=== PATIENT | male | born 1950 | race African-American/Black ===

== ENCOUNTER 2019-09-02 11:14 | Inpatient (IN) | payer OTHER ==
[2019-09-02] VITALS (29 sets, daily range): BP systolic 43–125; BP diastolic 15–88
[~2019-09-02] VITALS: Ht 188 cm; Wt 107.0 kg
[2019-09-02] MEDS ORDERED: EFFER-K 20 MEQ20 ME1 PO (12:30)
[2019-09-02] MEDS ORDERED: HYDROCHLOROTHIA25 M2 PO (12:30)
[2019-09-02] MEDS ORDERED: ATENOLOL 100MG100 MG PO (12:30)
[2019-09-02] MEDS ORDERED: ACYCLOVIR 400400 MG PO (12:30)
[2019-09-02] MEDS ORDERED: BACTRIM DS TAB1 EAC1 PO (12:31)
[2019-09-02] MEDS ORDERED: FLOMAX0.4 MG PO (12:31)
[2019-09-02] MEDS ORDERED: ASPIRIN325 PO (12:32)
[2019-09-02] MEDS ORDERED: KONSYL300 GM PO (12:32)
[2019-09-02 12:33] LABS: ABSOLUTE NEUTROPHILS 4.8 thou/uL (1.4-8.2); BASOPHILS 0.5 % (0.0-2.0); EOSINOPHILS 0.5 % (0.0-3.0); HEMATOCRIT 24.7 % (42.0-52.0); HEMOGLOBIN 8.4 gm/dL (14.0-18.0); LYMPHOCYTES 11.2 % (24.0-44.0); MCH 29.4 pg (26.0-34.0); MCV 86.5 fL (80.0-100.0); MONOCYTES 7.5 % (1.0-8.0); PLATELET COUNT 240 thou/uL (150-400); POLYS 80.3 % (36.0-66.0); RBC 2.85 mil/uL (4.50-6.00); RDW 14.8 % (10.5-14.5)
[2019-09-02] MEDS ORDERED: VITAMIN E400 UNIT PO (12:33)
[2019-09-02] MEDS ORDERED: VITAMIN C1000 MG PO (12:33)
[2019-09-02] MEDS ORDERED: VITAMIN D3250 MC1 PO (12:34)
[2019-09-02 12:43] LABS: ANION GAP 6 mmol/L (7-16); BUN 19 mg/dL (7-18); CALCIUM 8.9 mg/dL (8.5-10.1); CHLORIDE 102 mmol/L (98-107); CO2 27 mmol/L (21-32); CREATININE 2.1 mg/dL (0.7-1.3); GLUCOSE 157 mg/dL (74-106); POTASSIUM 4.4 mmol/L (3.5-5.1); SODIUM 135 mmol/L (136-145)
[2019-09-02 12:44] LABS: APTT 24.3 Seconds (24.5-32.8); INR 1.2
[2019-09-02 12:51] LABS: TROPONIN-I <0.06 ng/mL (<0.06)
[2019-09-02 13:10] LABS: ALBUMIN 3.7 g/dL (3.4-5.0); TOTAL PROTEIN 6.3 g/dL (6.4-8.2)
[2019-09-02 13:29] LABS: URINE BILIRUBIN NEGATIVE (Negative); URINE BLOOD 2+ (Negative); URINE CLARITY CLEAR; URINE COLOR YELLOW; URINE GLUCOSE-RANDOM* NEGATIVE (Negative); URINE KETONES NEGATIVE (Negative); URINE NITRITE-REFLEX NEGATIVE (Negative); URINE PROTEIN (DIPSTICK) NEGATIVE (Negative); URINE SPECIFIC GRAVITY 1.025 (1.005-1.035); URINE UROBILINOGEN 0.2 E.U./dl (0.2-1.0)
[2019-09-02 13:30] LABS: URINE LEUKOCYTES-REFLEX 1+ (Negative)
[2019-09-02 13:35] LABS: TSH 2.846 uIU/mL (0.358-3.740)
[2019-09-02 13:36] LABS: BACTERIA-REFLEX None Seen /HPF (None Seen); CASTS None Seen /LPF (None Seen); CRYSTALS None Seen /LPF (None Seen); SQUAMOUS None Seen /LPF (0-3); URINE RBC 3-10 Few /HPF (0-2); URINE WBC-REFLEX 6-15 Few /HPF (0-5)
[2019-09-02] MEDS ORDERED: TOPROL XL100 MG PO (16:30)
--- NOTE | 2019-09-02 16:51 | NUR ---
PT ADMITED FROM ER. ADMISSION HX AND ASSESSMENT COMPLETED. PT ALERT AND ORIENTED. VSS. DENIED HAVING PAIN OR DISCOMFORT. HAS TWO EPISODE OF MICHAEL RED STOOL SINCE HE CAME UP TO THE UNIT. DR. KAUFMAN CONSULTED. GI BLEED SCAN ORDERED. DR. HINSON AWARE. WILL CONTINUE TO MONITOR.
--- NOTE | 2019-09-02 18:15 | NUR ---
69 YO MALE RECEIVED TRANSFER FROM [facility] AFTER HAVING A SYNCOPAL EPISODE AFTER HAVING A LARGE BLOODY STOOL WITH CLOTS PER PATIENT. PATIENT ALERT AND ORIENTED, SKIN WARM AND DRY, PULSE IS WEAK AND THREADY. ATTACHED TO MONITOR SHOWING NSR WITH RATE IN THE 90. PLACED ON BEDPAN HE FEELS THE URGE TO HAVE A BM. IV THERAPY HERE TO INSERT PICC. NS INFUSING. SETTING UP UNIT OF BLOOD.
[2019-09-02 18:58] LABS: HEMATOCRIT 20.7 % (42.0-52.0)
--- NOTE | 2019-09-02 19:10 | NUR ---
CONSULTED TO PLACE A PICC FOR A PATIENT TX TO ICU POST RR/CODE CALLED TO [facility]. DR. HINES CONFIRMED PICC ORDER AND PATIENT VERBALLY STATED CONCENT. PICC IS URGENT AND A LEFT UPPER ARM BASILIC WAS WIDLEY PATENT. A #5F TRIPLE LUMEN POWER PICC WAS PLACED WITHOUT DIFFICULTY. LINE WAS TRIMMED AT 54CM AND ADVENACED WITHOUT DIFFICULTY. A STAT CHEST XRAY WAS ORDERED TO COMFIRM LINE
[2019-09-02 19:37] LABS: MCH 29.7 pg (26.0-34.0); MCV 87.3 fL (80.0-100.0); RBC 2.37 mil/uL (4.50-6.00); RDW 14.9 % (10.5-14.5); WBC 7.5 thou/uL (4.0-11.0)
--- NOTE | 2019-09-02 20:30 | NUR ---
ASSUMED CARE OF PT AT 1900. PT ALERT AND ORIENTED. PER DAY SHIFT RN PT HAD A FEBRILE REACTION TO SECOND UNIT OF BLOOD. PT STATED THAT HE ONLY FELT CHILLS BUT NO OTHER SYMPTOMS. PT HAD EPISODE OF DRY HEAVING WITHOUT VOMITING. ZOFRAN GIVEN PER MILITARY TECHNOLOGY MANAGER. GI MEHDI BRADY AT BEDSIDE AT 194. DR OLSEN AT BEDSIDE AT 1949, DECIDE NOT TO INTUBATE PT. PT TAKEN TO GI LAB AT 1952. BLOOD WAS RETURNED TO LAB PER BLOOD REACTION PROTOCOL.
[2019-09-03] VITALS (85 sets, daily range): BP systolic 87–146; BP diastolic 46–86
[2019-09-03 01:22] LABS: APTT 22.4 Seconds (24.5-32.8); D-DIMER 0.38 ug/mLFEU (0.19-0.50); INR 1.2; PROTIME 12.4 Seconds (9.3-11.4)
[2019-09-03 01:45] LABS: ALBUMIN 2.6 g/dL (3.4-5.0); SGOT 28 U/L (15-37); SGPT 19 U/L (30-65); TOTAL BILIRUBIN 0.3 mg/dL (0.2-1.0); TOTAL PROTEIN 4.9 g/dL (6.4-8.2)
[2019-09-03 01:52] LABS: DIRECT BILIRUBIN < 0.1 mg/dL (<0.1-0.2)
[2019-09-03 06:15] LABS: HEMOGLOBIN 6.7 gm/dL (14.0-18.0); RDW 14.8 % (10.5-14.5); WBC 8.3 thou/uL (4.0-11.0)
[2019-09-03 06:17] LABS: MCHC 34.6 g/dL (28.0-37.0); MCV 86.9 fL (80.0-100.0); RBC 2.21 mil/uL (4.50-6.00)
[2019-09-03 06:23] LABS: HEMATOCRIT 19.3 % (42.0-52.0)
--- NOTE | 2019-09-03 07:53 | NUR ---
ASSUMED CARE AT 0700. PATIENT HAD LARGE BRIGHT RED BLOODY STOOL WITH LARGE CLOTS. FELT FAINT AFTER STOOL. HOB LOWERED, BP DOWN 90/50. A/0 X4. SKIN WARM TYLENOL GIVEN AND TRANFUSION OF PRBC'S STARTED
[2019-09-03 08:28] LABS: CREATININE 1.7 mg/dL (0.7-1.3); MAGNESIUM 1.6 mg/dL (1.8-2.4); POTASSIUM 3.9 mmol/L (3.5-5.1)
[2019-09-03 08:37] LABS: CALCIUM 6.9 mg/dL (8.5-10.1)
--- NOTE | 2019-09-03 11:33 | EKG ---
[facility] [place] [address] ELECTROCARDIOGRAM REPORT Name: CARMEN MARTINEZ Room #: 250-P ADM IN M.R.#: [id number] Admission: 09/02/19 Attend Phys: Nino Yoder MD Discharge: Date of : 50 Report #: [id number] THIS REPORT FOR: cc: Aleksey Coyne MD, Michael D. MD Couchonnal, Luis F. 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
--- NOTE | 2019-09-03 11:33 | EKG ---
[facility] [place] [address] ELECTROCARDIOGRAM REPORT Name: CARMEN MARTINEZ Room #: 250-P ADM IN M.R.#: [id number] Admission: 09/02/19 Attend Phys: Nino Yoder MD Discharge: Date of : 50 Report #: [id number] THIS REPORT FOR: cc: Aleksey Coyne MD, Michael D. MD Couchonnal, Luis F. 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
--- NOTE | 2019-09-03 13:20 | NUR ---
PATIENT RECEIVED SECOND UNIT OF PRBC'S. TOLERATED WITHOUT INCIDENT. HAD 2 LARGE BLOODY STOOLS, FIRST MORE LIQUID AND SECOND HAD LIQUID BLOOD WITH CLOTS. DR HINSON AWARE AND ORDERS NOTED. ALSO NOTIFIED AT 1133 OF LOW MAG AND CALCIUM LEVEL. ORDERS NOTED, MAG INFUSING. AWAITING NUCLEAR MED TEST. VSS. WILL CONTINUE TO MONITOR.
--- NOTE | 2019-09-03 14:30 | NUR ---
TO NUCLEAR MED AND BACK AT 1340 TO [address] HINSON, DR KAUFMAN AND DR DIEGO NOTIFIED THAT PATIENT WAS BACK FOR NUCLEAR MED STUDY. ORDERS NOTED FROM DR KAUFMAN.
--- NOTE | 2019-09-03 19:00 | NUR ---
PATIENT SLOWLY PROGRESSING TOWARDS GOALS HE HAS HAD NO LARGE BLOODY STOOLS SINCE PRIOR TO NUCLEAR MED. MONITOR NSR, MAP GREATER THAN 65. RECEIVED 3 UNITS OF PRBC'S AND HBG PENDING. TAKING PREP FOR FLEX SIG PROCEDURE ON 09/03. URINE OUTPUT REMAINS 50 ML OR GREATER /HR. O2 SAT IN THE UPPER 90'S ON RA. REMAINS A/O X4. MAG AND CALCIUM REPLACEMENTS GIVEN.
[2019-09-03 19:25] LABS: HEMATOCRIT 24.8 % (42.0-52.0); HEMOGLOBIN 8.4 gm/dL (14.0-18.0)
--- NOTE | 2019-09-03 22:03 | NUR ---
ASSUMED CARE OF PT AT 1900. PT ALERT AND ORIENTED X4. AT 2014 PT C/O FEELING NAUSEATED PT HAD EPISODE OF EMESIS, WITH 200 CC OUT OF EMESIS. ZOFRAN GIVEN WITH IMPROVEMENT IN SYMPTOMS. AT 2119 PT HAD 2 STOOLS. FIRST STOOL APPEARED TO BE A MODERATE SIZE CLOTH. SECOND STOOL WAS LARGE MAROON COLORED LIQUID STOOL. PT THEN C/O FEELING LIGHT HEADED AT 2129 PT NOTED TO BE TACHYCARDIC AND HYPOTENIVE, HR 120-130s AND BP 87/46 (55). PT WAS CLEANED AND ALLOWED TO REST. BP IMPROVED TO 106/55 (71) AT 2139. Chandni LARRY NP CONTACTED AT 2154 AND UPDATED ON PATIENT CONDITION AND PLAN OF CARE. ORDER FOR REPEAT H&H PLACED BY TRAFFIC ADMINISTRATOR. WILL CONTINUE TO MONITOR PT.
[2019-09-04] VITALS (49 sets, daily range): BP systolic 85–141; BP diastolic 62–85
[2019-09-04 05:53] LABS: HEMATOCRIT 21.5 % (42.0-52.0); HEMOGLOBIN 7.3 gm/dL (14.0-18.0); MCH 29.5 pg (26.0-34.0); MCV 86.8 fL (80.0-100.0); RBC 2.48 mil/uL (4.50-6.00); RDW 14.6 % (10.5-14.5); WBC 11.3 thou/uL (4.0-11.0)
[2019-09-04 06:22] LABS: CALCIUM 6.6 mg/dL (8.5-10.1); CREATININE 1.5 mg/dL (0.7-1.3); MAGNESIUM 1.9 mg/dL (1.8-2.4); POTASSIUM 3.9 mmol/L (3.5-5.1)
--- NOTE | 2019-09-04 07:58 | NUR ---
REC CARE OF PT AT SHIFT CHANGE, REPORTS OF LOW GRADE TEMP HIGHEST 99.8, ROOM COOL. NO C/O OF PAIN AT THIS TIME. PHYSICIAN WORKING W/PT AT THIS TIME. CALLED GI LAB, HAVE SIX OUTPATIENTS CURRENTLY, ORDERS OF MED PASS W/SIPS OF WATER. PT DENIES HAVING ANY NAUSEA, NOTED ZOFRAN GIVEN AT 0200 HOUR. PT IS A&0X4, AMB INDEPENDENTLY NORMALLY, REPORTS OF SYNCOPAL EPISODE/CODE W/PULSE RECENT. WILL GET UP TO EDGE OF BED, BUT NOT UP. PT HAS PRIOR MEDICAL EXPERIENCE IN HOSPITAL. REPORT OF TACHYCARDIA UP TO 140S W/ANY ACTIVITY. SEE SEPARATE INTERVENTIONS FOR ASSESSMENT
--- NOTE | 2019-09-04 13:33 | NUR ---
BLOOD DOCUMENTATION: PT LEFT FOR PROCEDURES APPROX 1300 WITH BLOOD TRANSFUSION, VIA HIS OWN BED. COMES STRAIGHT HERE, NOT PACU, WILL MONITOR HEN
[2019-09-04 15:30] LABS: HEMOGLOBIN 7.2 gm/dL (14.0-18.0)
--- NOTE | 2019-09-04 16:22 | NUR ---
DR. LUH KAUFMAN PUT IN A CONSULT FOR DR. RYAN MCDOWELL, NUMBER DEFUNCT, INTERNET SHOWS UROLOGY. TEXTED DR. DIXON AND HE STATES THEY ARE IN SAME PRACTICE SO HE'S REC THE MESSAGE FOR POSSIBLE EMBOLIZATION, ETC. SEE ORDERS
--- NOTE | 2019-09-04 16:31 | NUR ---
INITIAL ASSESSMENT: SW reviewed chart and spoke with nursing and attending physician. Pt was admitted from home due to abdominal pain/GI bleed. Pt in ICU. Pt had EGD/colonoscopy earlier today. IR consulted. Possible arteriogram later today if indicated. Per chart, pt lives at home with his . Pt back from procedure and in his room resting. SW will follow up with pt/family tomorrow. SW is following to assist as needed with discharge planning.
--- NOTE | 2019-09-04 19:10 | NUR ---
BLOOD TRANSFUSION NOTES: PT LEFT DURING TRANSFUSION, NURSES REPORTED THEY ENTERED LAST VITAL SIGNS WHEN BLOOD WAS DONE. REPORTED OFF TO NIGHT RN ANOTHER UNIT NEEDED AND WROTE EXTENSIVE NOTES IN 'PROCEDURES' OF TWO PHYSICIAN PHONE NUMBERS AND REASONS TO TEXT/CALL TONIGHT.
[2019-09-05] VITALS (27 sets, daily range): BP systolic 111–157; BP diastolic 63–83
[2019-09-05 01:22] LABS: HEMOGLOBIN 7.8 gm/dL (14.0-18.0)
[2019-09-05 04:59] LABS: HEMATOCRIT 21.8 % (42.0-52.0); HEMOGLOBIN 7.4 gm/dL (14.0-18.0); MCH 30.4 pg (26.0-34.0); MCHC 33.7 g/dL (28.0-37.0); MCV 90.1 fL (80.0-100.0); RBC 2.42 mil/uL (4.50-6.00); RDW 14.5 % (10.5-14.5); WBC 13.1 thou/uL (4.0-11.0)
[2019-09-05 05:03] LABS: CALCIUM 6.6 mg/dL (8.5-10.1); CREATININE 1.6 mg/dL (0.7-1.3); MAGNESIUM 1.9 mg/dL (1.8-2.4); POTASSIUM 3.9 mmol/L (3.5-5.1)
--- NOTE | 2019-09-05 05:06 | NUR ---
CARE ASSUMED A 1900. PT LAERT AND ORIENTED. DENIES CHEST PAIN. PT TACHY ON THE MONITOR, REPORTS INTERMITTENT CHEST PALPITATION BUT DENIES ANYTHING SEVERE. TRANSFUSED ONE UNITOF PRBC. PRETRANSFUSION TEMP 99.7. POST TRANSFUSION PT TEMP WAS 100.0. NO TRANSFUSION REACTION NOTED. POST TRANSFUSION HGB 7.8, THIS MORNING HGB 7.4. RESULT NOTIFIED TO DAGO MART. ORDERS TO RECHECK H&H AT 1130, AND ORDER 2 UNITS OF BLOOD TO BE AVAILABLE NOW. PT CURRENTLY COMFORTABLE. NO DIZZINESS OR SOB REPORTED. 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 WILL CONTINUE TO MONITOR.
--- NOTE | 2019-09-05 07:10 | HC ---
[facility] [place] [address] CONSULTATION Name: CARMEN MARTINEZ Room #: 250-P ADM IN M.R.#: [id number] Admission: 09/02/19 Attend Phys: Nino Yoder MD Discharge: Date of : 50 Report #: [id number] THIS REPORT FOR: cc: Aleksey Coyne MD, Michael D. MD McKittrick, Richard James MD ~ CC: Kalyan Solo MD, Dr. Nino Easton MD REASON FOR CONSULTATION: Possible transfusion reaction and anemia. 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 He had a prostate biopsy about 9-10 days ago, was told he may have some bleeding, which he did. Then I guess it was worse on, I believe, Wednesday or Wednesday. He came to the hospital and was admitted. He has had blood per rectum. He has had a bleeding scan that confirmed that. He had, if I understand, a colonoscopy or sigmoidoscopy. They did not see any active bleeding, through did see a clot. He had another type of bleeding scan that showed possible blood near the hepatic flexure. He is scheduled for a scan later today. His hemoglobin on admission was 8.4. He then had several transfusions, he thinks he has had a total of 7, on about the second or third if I recall in the chart, he had a reaction where he had a low-grade fever. He may be dropped his pressure a little bit, but I think the lowest was around 108 and felt a little bit woozy. He has not had any hypoxia or breathing difficulties. The patient is currently interviewed in the ICU. Hemoglobin got down to low as 6.7, is currently 7.3 on the morning of 09/04/2019 at 5:35. During the same time, his coags have been normal including his INR and aPTT. His platelets have been in normal range. His total bilirubin was 0.3, LDH 134. Haptoglobin was normal range. Creatinine which originally was around 2.1, I believe is down to 1.7. PAST MEDICAL HISTORY: Notable for history of elevated PSA, hypertension, hyperlipidemia, slightly elevated hemoglobin A1c. SOCIAL HISTORY: Stopped smoking many years ago, maybe 3 or 4 alcoholic beverages per year. No street drugs. 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 FAMILY HISTORY: Mother and father had heart disease. He has multiple siblings, some of them with heart disease. One of them, I think, the brother may have had adrenal cancer. Has one daughter, who he describes is alive and well. [address] [address] CONSULTATION Name: CARMEN MARTINEZ Room #: 250-P ADM IN M.R.#: [id number] Admission: 09/02/19 Attend Phys: Nino Yoder MD Discharge: Date of : 50 Report #: [id number] PHYSICAL EXAMINATION: GENERAL: The patient appears his stated age. VITAL SIGNS: Height is 6 feet 2, 188 cm. Weight is 238.1 pounds or 108 kilos. Recent blood pressure is 133/77, pulse of 88, respirations 10, O2 sat 99%. Recent low-grade temperature of 99.7. MOOD: He is alert, pleasant, and very conversant. NEUROLOGIC: Speech and thought pattern are normal. He is moving arms and legs in a normal fashion. SKIN: Has no evidence of ecchymosis, except where some of his blood has been drawn in his antecubital fossa. HEENT: Oropharynx without petechiae, ulcers or redness or lesions. LUNGS: Clear to auscultation, symmetric, unlabored. No rhonchi, rales or wheezes. HEART: Appears regular rate. LYMPHATICS: No enlarged lymph nodes in the supraclavicular, cervical, axillary or inguinal region. ABDOMEN: Without masses, no hepatosplenomegaly. EXTREMITIES: Without clubbing, cyanosis or edema. MEDICATIONS: At this time include pantoprazole 40 mg IV daily, tamsulosin 0.4 daily, atenolol 100 mg daily, acyclovir 400 mg daily, Zofran p.r.n., Tylenol p.r.n. He thinks he may have been on an epinephrine and vasopressin drip, of those may just been available. I do not think he is currently on those. MiraLax 17 grams daily p.r.n. ASSESSMENT AND PLAN: 1. Reaction during transfusion, was probably a mild febrile reaction, but may have had some mild hypotension. Does not appear to have autoimmune basis. Note that bilirubin, haptoglobin and LDH appear normal. The patient appears to be stable. Continue monitoring hemoglobin serially and also kidney function and liver function tests. 2. Gastrointestinal bleed. Defer to GI and surgeons. Radiology investigation later today of hepatic flexure. 3. Prostate abnormalities. Pathology pending. 4. Hypertension in the past. Currently, holding hypertension medications given mild hypotension. Pressure at this time stable. 5. The patient reports lipid abnormalities. Continue monitoring. 6. Recent biopsy, on Bactrim. Continue per plans. 7. Benign prostatic hypertrophy, on Flomax. 8. Viral suppression. Reports being on Zovirax. [facility] [address] [place] [address] CONSULTATION Name: MICHELLECARMEN Room #: 250-P ADM IN M.R.#: [id number] Admission: 09/02/19 Attend Phys: Nino Yoder MD Discharge: Date of : 50 Report #: [id number] We will follow with you. <ELECTRONICALLY SIGNED> By: Jose Hamlin MD 09/05/19 0710 0815 1052 Jose Hamlin MD /nt
[2019-09-05 12:03] LABS: HEMATOCRIT 17.4 % (42.0-52.0)
[2019-09-05 12:28] LABS: HEMOGLOBIN 6.8 gm/dL (14.0-18.0)
[2019-09-05 12:34] LABS: HEMATOCRIT 19.9 % (42.0-52.0)
--- NOTE | 2019-09-05 15:40 | NUR ---
SW reviewed chart and spoke with attending physician. Pt with additional blood transfusions overnight. Pt to have arteriogram later today in IR. SW will follow up with pt at a later time. SW is following to assist as needed with discharge planning.
--- NOTE | 2019-09-05 17:56 | NUR ---
HEMODYNAMICALLY STABLE. H&H DRAWN AT 1130, CRITICAL AT 6.0 AND 17. REDRAWN FOR CLARIFICATION AND CAME BACK 6.8 AND 19. TO MUSEUM GUIDE FOR MESENTERIC ANGIOGRAM. RECTAL ARTERY WITH 4 AREAS OF BLEEDING AND COILS PLACED. R GROIN SITE WITH MYNX CLOSURE.
[2019-09-06] VITALS (43 sets, daily range): BP systolic 118–166; BP diastolic 56–82
[2019-09-06 04:37] LABS: MCV 91.9 fL (80.0-100.0); RBC 1.94 mil/uL (4.50-6.00); RDW 14.8 % (10.5-14.5)
[2019-09-06 04:38] LABS: MCH 31.3 pg (26.0-34.0); WBC 8.4 thou/uL (4.0-11.0)
[2019-09-06 04:47] LABS: CREATININE 1.2 mg/dL (0.7-1.3); POTASSIUM 3.4 mmol/L (3.5-5.1)
[2019-09-06 04:49] LABS: HEMATOCRIT 17.9 % (42.0-52.0); HEMOGLOBIN 6.1 gm/dL (14.0-18.0)
--- NOTE | 2019-09-06 05:39 | NUR ---
PT ALERT AND ORIENTED. NO BM MOVEMENTS OVERNIGHT ON ANY SIGN OF BLEEDING. BP REMAINED STABLE OVERNIGHT. HR CONTROLLED WITH NO ACTIVITIES BUT TACHY WITH ACTIVITIES. DENIES CHEST PAIN OR ANY PALPITATIONS. PT REPORTS NOT PASSING GAS BUT BOWEL SOUNDS ARE ACTIVE. MONITOR ABDOMINAL DISCOMFORT REPORTED OVERNIGHT WELL. THIS MORNING H&H WAS 6.1 AND 17.9 RESPECTIVELY. SENIOR BUSINESS ARCHITECT FIOR NOTIFIED. ORDERS TO TRANSFUSE 1 UNIT OF PRBC GIVEN. LAB NOTIFIED FOR TYPE AND SCREEN. PT ASYMPTOMATIC CURRENTLY RESTING COMFORTABLY IN BED. NO FURTHER CONCERNS AT THIS TIME. WILL CONTINUE TO FOLLOW POC.
--- NOTE | 2019-09-06 08:10 | P ---
[facility] [place] [address] PROCEDURE REPORT Name: CARMEN MARTINEZ Room #: 250-P ADM IN M.R.#: [id number] Admission: 09/02/19 Attend Phys: Nino Yoder MD Discharge: Date of : 50 Report #: [id number] THIS REPORT FOR: cc: Aleksey Coyne MD, Michael D. MD Young, Jeffrey L. MD ~ CC: Garth oCyne DATE OF SERVICE: 09/02/2019 PROCEDURE PERFORMED: Flexible sigmoidoscopy. ANESTHESIA USED: The patient was given propofol via the anesthesiologist. INDICATIONS FOR THE PROCEDURE: Lower GI bleeding. DESCRIPTION OF PROCEDURE: Informed consent was obtained. The patient was put in the left lateral decubitus position and given the IV sedation as discussed above. The colonoscope was advanced through the anus into the rectum, sigmoid colon, descending colon and distal transverse colon. There was a large adherent blood clot noted in the rectum. There was no active bleeding noted in the rectum. There were multiple diverticula noted in the sigmoid and distal descending colon. There was a lot of blood in the lumen, but no active bleeding identified. The colonoscope was withdrawn. The patient tolerated the procedure well and was recovered in stable condition. IMPRESSION: Suspected diverticular bleed. Less likely bleeding from the recent prostate biopsy. RECOMMENDATIONS: 1. Observe in ICU. 2. Transfuse packed red blood cells as necessary. 3. Consider mesenteric arteriogram if the patient continues to have GI bleeding. <ELECTRONICALLY SIGNED> By: Patricio Cadena MD 09/06/19 0810 2114 0724 Robert Bond MD /nt
--- NOTE | 2019-09-06 08:10 | P ---
[facility] [place] [address] PROCEDURE REPORT Name: CARMEN MARTINEZ Room #: 250-P ADM IN M.R.#: [id number] Admission: 09/02/19 Attend Phys: Nino Yoder MD Discharge: Date of : 50 Report #: [id number] THIS REPORT FOR: cc: Aleksey Coyne MD, Michael D. MD Young, Jeffrey L. MD ~ CC: Garth Coyne DATE OF SERVICE: 09/02/2019 GASTROENTEROLOGY PROCEDURE NOTE SURGEON: Robert Bond M.D. PROCEDURE: Upper GI endoscopy. PREOPERATIVE DIAGNOSIS: Gastrointestinal bleeding. POSTOPERATIVE DIAGNOSIS: Normal upper endoscopy. DESCRIPTION OF PROCEDURE: Informed consent was obtained. The patient was brought to the GI lab in a fasting state. The patient was put in the left lateral decubitus position and given the IV sedation as discussed above. The endoscope was passed through the oropharynx, down into the esophagus, stomach and duodenum. The esophagus, stomach and duodenum appeared normal. The endoscope was withdrawn. The patient tolerated the procedure well and was recovered in stable condition. IMPRESSION: Normal upper endoscopy. RECOMMENDATIONS: Proceed with flexible sigmoidoscopy to further evaluate for lower GI bleeding. <ELECTRONICALLY SIGNED> By: Patricio Cadena MD 09/06/19 0810 2111 0659 Robert Bond MD /any
--- NOTE | 2019-09-06 08:10 | HC ---
[facility] [place] [address] CONSULTATION Name: CARMEN MARTINEZ Room #: 250-P ADM IN M.R.#: [id number] Admission: 09/02/19 Attend Phys: Nino Yoder MD Discharge: Date of : 50 Report #: [id number] THIS REPORT FOR: cc: Aleksey Coyne MD, Michael D. MD Young, Jeffrey L. MD ~ CC: Garth Coyne DATE OF SERVICE: 09/02/2019 GASTROENTEROLOGY CONSULTATION REASON FOR CONSULTATION: GI bleeding and blood loss anemia. HISTORY OF PRESENT ILLNESS: The patient is a 69-year-old male. He had a prostate biopsy done 9 days ago. He had a small amount of bright red blood per rectum earlier this week. He called his urologist. His urologist told him to stop the aspirin. Then, early this morning, the patient started having multiple bloody bowel movements. He got lightheaded at home. He came to the Emergency Room. He was found to be anemic. He was sent down to nuclear medicine lab for GI bleeding scan. He had a syncopal episode in the nuclear medicine GI bleeding scan area. His hemoglobin dropped further. He was given another transfusion of packed red blood cells. He had a fever and they thought he was having a reaction to the blood transfusion. The blood transfusion was stopped. PAST MEDICAL HISTORY: Includes hypertension. He had the recent prostate biopsy as discussed above. SOCIAL HISTORY: Reveals that he is . 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 Does not abuse alcohol. FAMILY HISTORY: Unremarkable. MEDICINES: As per entered in the electronic medical record. REVIEW OF SYSTEMS: Reveals that he has not lost weight. Denies chest pain, heart murmurs, palpitations. Denies shortness of breath, cough, wheezing. Denies dysuria, hematuria, urinary frequency, urgency. No seizures, dizziness, nervousness, anxiety or depression. PHYSICAL EXAMINATION: GENERAL: Reveals a well-developed, well-nourished male in no acute distress. VITAL SIGNS: Stable and recorded on the nursing sheet. HEENT: Reveals anicteric sclerae. Normal oropharynx. [facility] [address] [place] [address] CONSULTATION Name: CARMEN MARTINEZ Room #: 250-P ADM IN M.R.#: [id number] Admission: 09/02/19 Attend Phys: Nino Yoder MD Discharge: Date of : 50 Report #: [id number] NECK: Supple without lymphadenopathy. CARDIOVASCULAR: Regular rate and rhythm. LUNGS: Clear to auscultation. ABDOMEN: Soft, nontender, bowel sounds present. No masses, no hepatosplenomegaly. EXTREMITIES: Reveal no clubbing, cyanosis or edema. NEUROLOGIC: He is alert and oriented x 3 without any gross motor or sensory deficits. LABORATORY DATA: Reviewed and on electronic medical record. IMPRESSION: Gastrointestinal bleeding and blood loss anemia. Suspect lower gastrointestinal blood loss. Nuclear medicine gastrointestinal bleeding scan suggested rectal or distal sigmoid gastrointestinal bleeding. RECOMMENDATIONS: Proceed with EGD and flexible sigmoidoscopy tonight to further evaluate. Further recommendations depending upon results of procedures. The patient will continue to receive transfusions of packed red blood cells. I discussed the situation with the surgeon who is present during my evaluation as well. If the patient continues to bleed, consider mesenteric arteriogram. <ELECTRONICALLY SIGNED> By: Patricio Cadena MD 09/06/19 0810 2118 0725 Robert Bond MD /nt
[2019-09-06 14:25] LABS: HEMATOCRIT 20.8 % (42.0-52.0); HEMOGLOBIN 7.1 gm/dL (14.0-18.0)
--- NOTE | 2019-09-06 14:46 | NUR ---
H&H THIS AM WAS 6.1/17.9. 1 UNIT OF PRBC'S TRANSFUSED WITHOUT REACTION. REPEAT H&H WAS 7.1/21.2. NO ACTIVE BLEEDING NOTED. WILL CHECK H&H Q6H X3.. ADVANCED TO REGULAR DIET. NO NAUSEA OR VOMITING.
--- NOTE | 2019-09-06 15:32 | NUR ---
SW reviewed chart and spoke with nursing and attending physician. Pt remains in ICU. Pt received additional blood transfusion. SW spoke with pt via phone. Introduced role of SW. Pt is alert/orientated x 4. Pt reports he lives at home with his and dtr. Prior to admission, pt was independent with ADLs. No use of DME. No hx of services or post-acute placement. Pt's PCP is Dr. Aleksey Coyne. Plan is for pt to discharge home when medically stable. SW is following to assist as needed with discharge planning.
--- NOTE | 2019-09-06 18:08 | PATH ---
[facility] [address] [place] [address] PATHOLOGY RPT PROCEDURE Name: KANE FLORES Room #: 250-P ADM IN M.R.#: [id number] Admission: 09/02/19 Date of : 50 Discharge: Report #: [id number] Path Case #: [id number] [facility] Accession Number: [id number] . 01 Material submitted: . colon - POLYP AT ASCENDING COLON. Modifiers: ascending . 01 Clinical history: . GI bleed . 02 Diagnosis: Large bowel "polyp at ascending colon", endoscopic biopsy: - Tubular adenoma; negative for high grade dysplasia and malignancy. (MLK/db; 09/06/2019) LBQ 09/06/2019 1445 Local . 02 Electronically signed: . Asia Talavera MD, Pathologist NPI- [id number] . 01 Gross description: . The specimen is received in formalin, labeled "Kane Flores, polyp at ascending colon" and consists of a fragment of pink-deng tissue measuring 0.2 x 0.2 x 0.1 cm which is entirely submitted in A1. (SDY; 09/05/2019) SYU/SYU 09/05/2019 1334 Local . 02 Pathologist provided ICD-10: D12.2 . 02 CPT . 009580 Specimen Comment: A courtesy copy of this report has been sent to [phone], [phone] Specimen Comment: [phone], Specimen Comment: Report sent to ,DR NOYOLA / DR HINSON Performed at: 01 [facility] [address] [id number] MD Stuart Moore MD Phone: [phone] Performed at: 02 [facility] [address] [id number] MD Dwight Morales MD Phone: [phone]
[2019-09-06 19:43] LABS: HEMATOCRIT 18.6 % (42.0-52.0)
[2019-09-06 19:44] LABS: HEMOGLOBIN 6.4 gm/dL (14.0-18.0)
[2019-09-07] VITALS (25 sets, daily range): BP systolic 102–164; BP diastolic 57–75
[2019-09-07 02:09] LABS: HEMATOCRIT 20.1 % (42.0-52.0)
--- NOTE | 2019-09-07 04:12 | NUR ---
PATIENT IS PROGRESSING SLOWLY IN HIS CARE PLAN. VITAL SIGNS STABLE WITH PATIENT HAVING NO COMPLAINTS OF PAIN OR NAUSEA. FULLY ORIENTED, PATIENT IS ABLE TO CALL APPROPRIATELY FOR NEEDS AND PARTICIPATE FULLY IN CARE. CRITICAL LOW HEMOGLOBIN AND HEMATOCRIT EARLY IN SHIFT WITH PATIENT TRANSFUSED PER PROVIDERS ORDERS WITHOUT INCIDENT. UP WITH ASSISTANCE INCIDENT FREE. CONTINUE PLAN OF CARE.
[2019-09-07 08:17] LABS: HEMATOCRIT 21.9 % (42.0-52.0); HEMOGLOBIN 7.6 gm/dL (14.0-18.0)
--- NOTE | 2019-09-07 11:55 | NUR ---
cm consult ? no home o2. cm spoke with bedside nurse, he not needed any o2 during his stay. discussed during los possible out of icu and possible dc home tomorrow. will cont following as needed for dc needs.
--- NOTE | 2019-09-07 12:00 | NUR ---
PATIENT HAS HAD A TOTAL OF TWO LOOSE/UNFORMED STOOLS; RED/BROWN IN COLOR.
[2019-09-07 13:58] LABS: HEMATOCRIT 21.6 % (42.0-52.0); HEMOGLOBIN 7.5 gm/dL (14.0-18.0)
--- NOTE | 2019-09-07 14:35 | NUR ---
PATIENT AGREEABLE WITH REMOVAL OF URINARY CATHETER AT THIS TIME. REMOVED TEJADA CATHETER PER PROTOCOL. URINAL PLACED AT BEDSIDE.
--- NOTE | 2019-09-07 17:31 | NUR ---
PATIENT C/O HEADACHE. PAIN 3 OUT OF 10. PRN TYLENOL GIVEN FOR PAIN PER PATIENT REQUEST. PATIENT DENIES ANY OTHER NEEDS AT THIS TIME.
--- NOTE | 2019-09-07 18:21 | NUR ---
VSS. PATIENT A/O X 4. PATIENT UP TO CHAIR THIS SHIFT. PATIENT HAD TWO LOOSE STOOLS/RED-BROWN. HGB STABLE AT 7.6 AND 7.5. LABS ORDERED FOR REDRAW TOMORROW MORNING. PICC LUMENS FLUSH/ASPIRATE APPROPRIATELY. SALINE LOCKED AT THIS TIME. TEJADA CATHETER REMOVED AT 1445. URINAL PLACED AT BEDSIDE. PATIENT HAS NOT VOIDED AT THIS TIME. PATIENT HAD A HEADACHE THIS EVENING; TREATED WITH PRN TYLENOL; DENIES PAIN AT THIS TIME. PATIENT SR/ST/BBB ON MONITOR. PULSE 80s-110s. REMAINS ON ROOM AIR. SBA TO USE BSC. ORDER TO DOWNGRADE AND TRANSFER TO CCU RECEIVED. AWAITING BED.
--- NOTE | 2019-09-07 18:30 | NUR ---
PATIENT VOIDED 150 ML OF CLEAR YELLOW URINE IN URINAL. PATIENT STATED HE DID NOT HAVE PROBLEMS VOIDING AT THIS TIME.
[2019-09-08] VITALS (61 sets, daily range): BP systolic 84–139; BP diastolic 42–86
[2019-09-08 02:54] LABS: HEMOGLOBIN 6.6 gm/dL (14.0-18.0); WBC 5.8 thou/uL (4.0-11.0)
[2019-09-08 02:55] LABS: MCH 31.1 pg (26.0-34.0); MCHC 34.4 g/dL (28.0-37.0); MCV 90.4 fL (80.0-100.0); RBC 2.12 mil/uL (4.50-6.00); RDW 14.3 % (10.5-14.5)
[2019-09-08 02:57] LABS: HEMATOCRIT 19.1 % (42.0-52.0)
--- NOTE | 2019-09-08 03:58 | NUR ---
0130: Pt up to have BM, from 4882-2910 pt had 3 large, bright red blood w/ clots stools. HR up to 140s, SBP down into 90s. O2 applied at 2L for comfort w/ good results. Pt pale and shivering, emotional support provided as patient discouraged with set back. Dr. Cadena notified, instructed RN to contact IR. Dr. Zheng phoned and orders for transfusion and CTA mesenteric artery obtained. From 6750-3515 pt has had approximately 6 more large stools filled with clots. Tolerating blood transfusion well at this time. See frequent vital signs and reassessments for further details. Discussed with pt the need to update his . He requested that we wait until morning when we are able to have more answers and possible treatment will have been done. Dr. Zheng stated he would be on his way in to see patient.
--- NOTE | 2019-09-08 07:10 | NUR ---
Pt continued to have large amounts of bleeding with tachycardia and hypotension. Loreto Kenyon and Dr. Zheng aware of decline in status. Around 04:30 pt began making gurgling noise, eyes rolled back into head and he appeared to be seizing/posturing. Code Blue called, pt never lost pulse and code was canceled. Pt to I.R. at 0500. Last 2 units of blood (4 given total) completed in I.R. Levophed titriated down to 6 mcg/min with SBP in 130s prior to this nurse reporting to I.R. nurse. At that time pt did not appear to be having anymore rectal bleeding and was stable.
--- NOTE | 2019-09-08 07:50 | NUR ---
RN ASSUMED CARE AT 0700, PATIENT IN IR AT THAT TIME. PATIENT RETURNED BACK TO UNIT AT 0740. NIGHT NURSE ATTEMPTING TO CALL , NO ANSWER.
[2019-09-08 08:32] LABS: HEMATOCRIT 27.6 % (42.0-52.0)
[2019-09-08 08:38] LABS: HEMOGLOBIN 9.4 gm/dL (14.0-18.0)
[2019-09-08 15:49] LABS: HEMATOCRIT 27.2 % (42.0-52.0); HEMOGLOBIN 9.5 gm/dL (14.0-18.0)
[2019-09-08 16:20] LABS: CALCIUM 7.3 mg/dL (8.5-10.1); CREATININE 1.3 mg/dL (0.7-1.3); MAGNESIUM 1.7 mg/dL (1.8-2.4); PHOSPHORUS 3.5 mg/dL (2.5-4.9); POTASSIUM 3.4 mmol/L (3.5-5.1)
--- NOTE | 2019-09-08 16:23 | NUR ---
SW reviewed chart and spoke with nursing and attending physician. Pt went to IR earlier today for embolization. Pt had additional blood transfusions. Pt remains in ICU level of care. No weekend discharge anticipated. JYOTI is following to assist as needed with discharge planning.
[2019-09-09] VITALS (25 sets, daily range): BP systolic 107–145; BP diastolic 68–93
[2019-09-09 06:14] LABS: ABSOLUTE NEUTROPHILS 4.1 thou/uL (1.4-8.2); BASOPHILS 0.3 % (0.0-2.0); EOSINOPHILS 3.6 % (0.0-3.0); HEMATOCRIT 24.2 % (42.0-52.0); HEMOGLOBIN 8.3 gm/dL (14.0-18.0); LYMPHOCYTES 10.4 % (24.0-44.0); MCH 30.5 pg (26.0-34.0); MCHC 34.3 g/dL (28.0-37.0); MCV 88.8 fL (80.0-100.0); MONOCYTES 11.9 % (1.0-8.0); PLATELET COUNT 136 thou/uL (150-400); POLYS 73.8 % (36.0-66.0); RBC 2.72 mil/uL (4.50-6.00); RDW 14.4 % (10.5-14.5); WBC 5.6 thou/uL (4.0-11.0)
[2019-09-09 06:32] LABS: INR 1.1; PROTIME 11.5 Seconds (9.3-11.4)
[2019-09-09 06:49] LABS: CALCIUM 6.8 mg/dL (8.5-10.1); CREATININE 1.2 mg/dL (0.7-1.3); MAGNESIUM 2.1 mg/dL (1.8-2.4); POTASSIUM 3.7 mmol/L (3.5-5.1); TOTAL BILIRUBIN 0.7 mg/dL (0.2-1.0); TOTAL PROTEIN 4.2 g/dL (6.4-8.2)
--- NOTE | 2019-09-09 07:00 | NUR ---
Pt progressing toward goals. No signs of bleeding overnight. VS stable. Urine output 1050 cc for 12 hours. Taking clear liquids without problem. No nausea, vomitting, diarrhea, or abd. pain. Monitor sinus rhythm with intermittent BBB.
[2019-09-09 09:21] LABS: URINE BILIRUBIN NEGATIVE (Negative); URINE BLOOD TRACE (Negative); URINE CLARITY CLEAR; URINE COLOR YELLOW; URINE GLUCOSE-RANDOM* NEGATIVE (Negative); URINE KETONES NEGATIVE (Negative); URINE LEUKOCYTES-REFLEX NEGATIVE (Negative); URINE NITRITE-REFLEX NEGATIVE (Negative); URINE PROTEIN (DIPSTICK) NEGATIVE (Negative); URINE UROBILINOGEN 0.2 E.U./dl (0.2-1.0)
--- NOTE | 2019-09-09 10:08 | NUR ---
RN ASSUMED AT 0700. PATIENT ALERT AND PLEASEANT DR. ZHENG AT BEDSIDE AT 1000. ORDERS RECIEVED.
[2019-09-09 13:24] LABS: HEMATOCRIT 24.5 % (42.0-52.0); HEMOGLOBIN 8.6 gm/dL (14.0-18.0)
[2019-09-09 15:39] LABS: HEMATOCRIT 24.7 % (42.0-52.0); HEMOGLOBIN 8.6 gm/dL (14.0-18.0)
[2019-09-10] VITALS (19 sets, daily range): BP systolic 106–141; BP diastolic 60–85
[2019-09-10 01:09] LABS: HEMATOCRIT 23.1 % (42.0-52.0)
--- NOTE | 2019-09-10 05:49 | NUR ---
VS stable. No signs of bleeding overnight, however Hgb is slowly creeping downward. Urinating without difficulty since lopez removal. No c/o of pain, abd tenderness.
[2019-09-10 06:14] LABS: CALCIUM 7.3 mg/dL (8.5-10.1); CREATININE 1.2 mg/dL (0.7-1.3); POTASSIUM 3.5 mmol/L (3.5-5.1)
[2019-09-10 07:21] LABS: HEMATOCRIT 22.8 % (42.0-52.0); HEMOGLOBIN 7.9 gm/dL (14.0-18.0); MCH 30.5 pg (26.0-34.0); MCHC 34.7 g/dL (28.0-37.0); PLATELET COUNT 158 thou/uL (150-400); RBC 2.59 mil/uL (4.50-6.00); RDW 14.2 % (10.5-14.5); WBC 4.3 thou/uL (4.0-11.0)
[2019-09-10 10:05] LABS: ABSOLUTE NEUTROPHILS 3.3 thou/uL (1.4-8.2)
--- NOTE | 2019-09-10 12:34 | NUR ---
ASSUMED CARE @ 0700 09/10/19, PT ASSESSMENTS AND VSS COMPLETE PER ICU PROTOCOL AND DOCUMENTED. PT AXOX4, PT DENIES PAIN. NO SIGNS OF BLEEDING AT THIS TIME. DR CARDOSO ROUNDED AND UPDATED BY THE RN ON THE PT'S STATUS OVERNIGHT, ORDERS TO ADVANCE DIET TO REGULAR GIVEN. DR DIEGO @ BEDSIDE NO NEW ORDERS RECIEVED.
[2019-09-10 16:23] LABS: HEMATOCRIT 22.7 % (42.0-52.0); HEMOGLOBIN 7.9 gm/dL (14.0-18.0)
[2019-09-11] VITALS (23 sets, daily range): BP systolic 109–136; BP diastolic 56–84
--- NOTE | 2019-09-11 06:00 | NUR ---
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 AWAKE AND ALERT VSS AFEBRILE. LUNGS CLEAR DENIES PAIN LEFT GROIN SITE INTACT. PULSES INTACT VOIDED 2300 CC URINE THIS SHIFT. SLEPT AT INTERVAL TONIGHT. PROGRESSING TOWARD GOALS. NO BLEEDING. WILL CONT TO MONITOR.
[2019-09-11 06:50] LABS: HEMATOCRIT 22.6 % (42.0-52.0); HEMOGLOBIN 7.6 gm/dL (14.0-18.0)
[2019-09-11 06:55] LABS: CALCIUM 7.8 mg/dL (8.5-10.1); CREATININE 1.3 mg/dL (0.7-1.3); POTASSIUM 3.8 mmol/L (3.5-5.1)
--- NOTE | 2019-09-11 15:47 | NUR ---
SW reviewed chart and spoke with nursing and attending physician. Pt is progressing towards goals for discharge. Anticipate discharge home tomorrow pending hemoglobin. Pt may transfer out of ICU to CCU when a bed is available. Plan is for pt to discharge home when medically stable. SW is following to assist as needed with discharge planning.
[2019-09-11 17:38] LABS: HEMATOCRIT 24.2 % (42.0-52.0); HEMOGLOBIN 8.3 gm/dL (14.0-18.0)
--- NOTE | 2019-09-11 18:30 | NUR ---
PT IS A&O X3, PT'S VS ARE STABLE, PT GETS UP TO CHAIR WITH ASSIST, PT HAS WALKED AT HALLWAY 1 TIME WITH CANE, PT IS CONTINUING IV ABX, PT'S HGB 7.6 TODAY, PT DOES NOT HAVE S/S OF GI BLEEDING AT THIS TIME, PT'S BOTH GRION DRESSINGES ARE DRY AND INTACT , PT DENIES PAIN AND N/V AT DAY SHIFT, PT HAS MEDICATIONS FOR BM, IF PT'S HGB RESULTS ARE STABLE AND PT DOES NOT HAVE BLOOD STOOL, PT MAY DC TO HOME TOMMOROW, RN WILL REPORT TO NEXT SHIFT TO KEEP EYE ON PT.
[2019-09-12] VITALS (12 sets, daily range): BP systolic 106–128; BP diastolic 60–73
--- NOTE | 2019-09-12 04:42 | NUR ---
PATIENT IS PROGRESSING IN HIS CARE PLAN. VITAL SIGNS STABLE WITH PATIENT HAVING NO COMPLAINTS OF PAIN OR NAUSEA. FULLY ORIENTED, PATIENT IS ABLE TO CALL APPROPRIATELY FOR NEEDS AND PARTICIPATE FULLY IN CARE. BREATHING STABLE ON ROOM AIR EVIDENCED BY ASSESSMENT AND SPOT OXYGENATION CHECKS. NO SIGNS OF BLEEDING THROUGHOUT SHIFT. UP MULTIPLE TIMES WITH ASSISTANCE INCIDENT FREE. PATIENT AMBULATED THE HALLS WITH NURSING STAFF AND APPEARED BALANCED WHEN WALKING. HE DOES STATE WEAKNESS, BUT NOTES THAT HE "FEELS STRONGER" FROM WALK ON PREVIOUS SHIFT. PATIENT IS ANXIOUS FOR BOWEL MOVEMENT AND POTENTIAL DISCHARGE HOME. CONTINUE PLAN OF CARE.
[2019-09-12 05:18] LABS: HEMATOCRIT 21.7 % (42.0-52.0); HEMOGLOBIN 7.6 gm/dL (14.0-18.0); MCH 30.7 pg (26.0-34.0); MCV 87.7 fL (80.0-100.0); RBC 2.47 mil/uL (4.50-6.00); RDW 14.2 % (10.5-14.5); WBC 4.8 thou/uL (4.0-11.0)
--- NOTE | 2019-09-12 07:21 | NUR ---
ASSUMED CARE AT 0700, VITAL SIGNS AND ASSESSMENT COMPLETED PER ICU PROTOCOL. DR. MAYA NOTIFIED OF Hgb DROPPING TO 7.6. NEW ORDERS RECEIVED, RN WILL CONTINUE TO MONITOR.
--- NOTE | 2019-09-12 10:24 | NUR ---
Nutrition: pt seen for LOS. Admit with rectal bleeding S/P complete mesenteric angiography with embolization of superior rectal artery x 2. GI follows. Relatively stable weights. Good appetite pt eating 80-100% of meals on regular diet, is lactose intolerant. Daily miralax, ferrous sulfate. Pt pending D/C if Hgb acceptable. Low nutrition risk.
--- NOTE | 2019-09-12 11:22 | NUR ---
discussed during los, will need to have bm prior to dc. gi following. he will dc home when ordered per
[2019-09-12 14:25] LABS: HEMATOCRIT 23.5 % (42.0-52.0); HEMOGLOBIN 8.1 gm/dL (14.0-18.0)
[2019-09-12] MEDS ORDERED: CARDIZEM30 MG PO (16:59)
[2019-09-12] MEDS ORDERED: PANTOPRAZOLE SO40 M1 PO (16:59)
[2019-09-12] MEDS ORDERED: IRON325 PO (16:59)
== END 2019-09-12 17:30 | disposition home or self-care (01) | DRG 377 ==
LOC: ER 11:14 → ICU 15:15 → EROBS 15:15 → ICU 15:20 → 4W 16:00 → 2N 16:02 → ICU 18:06
PROVIDERS: Emergency Medicine; Internal Medicine; Nurse Practitioner; Nurse Practitioner Family; Radiology Diagnostic Radiology; Surgery; ADMIT Internal Medicine; ATTEND Internal Medicine
PROC: 30233N1 Transfusion of Nonautologous Red Blood Cells into Peripheral Vein, Percutaneous Approach (ICD-10-PCS; principal; 2019-09-02)
PROC: 02HV33Z Insertion of Infusion Device into Superior Vena Cava, Percutaneous Approach (ICD-10-PCS; principal; 2019-09-02)
PROC: 0DJD8ZZ Inspection of Lower Intestinal Tract, Via Natural or Artificial Opening Endoscopic (ICD-10-PCS; principal; 2019-09-02)
PROC: 0DJ08ZZ Inspection of Upper Intestinal Tract, Via Natural or Artificial Opening Endoscopic (ICD-10-PCS; principal; 2019-09-02)
PROC: 0DBK8ZX Excision of Ascending Colon, Via Natural or Artificial Opening Endoscopic, Diagnostic (ICD-10-PCS; 2019-09-04)
PROC: B4141ZZ Fluoroscopy of Superior Mesenteric Artery using Low Osmolar Contrast (ICD-10-PCS; 2019-09-05)
PROC: B4151ZZ Fluoroscopy of Inferior Mesenteric Artery using Low Osmolar Contrast (ICD-10-PCS; 2019-09-05)
DX: K57.31 Diverticulosis of large intestine without perforation or abscess with bleeding (principal); N17.0 Acute kidney failure with tubular necrosis; K55.059 Acute (reversible) ischemia of intestine, part and extent unspecified; D62 Acute posthemorrhagic anemia; H34.9 Unspecified retinal vascular occlusion; I74.8 Embolism and thrombosis of other arteries; K92.1 Melena; N40.0 Benign prostatic hyperplasia without lower urinary tract symptoms; I95.9 Hypotension, unspecified; E78.5 Hyperlipidemia, unspecified; K64.8 Other hemorrhoids; M48.9 Spondylopathy, unspecified; F12.90 Cannabis use, unspecified, uncomplicated; E87.6 Hypokalemia; E83.51 Hypocalcemia; E83.42 Hypomagnesemia; D12.2 Benign neoplasm of ascending colon; N18.9 Chronic kidney disease, unspecified; I12.9 Hypertensive chronic kidney disease with stage 1 through stage 4 chronic kidney disease, or unspecified chronic kidney disease; Z79.899 Other long term (current) drug therapy; Z88.8 Allergy status to other drugs, medicaments and biological substances; Z87.891 Personal history of nicotine dependence; Z82.49 Family history of ischemic heart disease and other diseases of the circulatory system; Y92.89 Other specified places as the place of occurrence of the external cause; Z03.818 Encounter for observation for suspected exposure to other biological agents ruled out
CPT/HCPCS: 10078; 10203; 27000; 62110; 62900